=== PATIENT | female | born 1965 | race Caucasian/White ===

== ENCOUNTER → 2017-04-18 | Outpatient (CLI) | payer OTHER ==
[~2017-04-18] MED LIST: CLIN300C2 PO; ESTR2TAB PO; FEXO1TAB58 PO; IBUP-1050 PO; LEVO50TA PO
[2017-04-18 12:22] LABS: HEMATOCRIT 45.4 % (37-47); MEAN CELL VOLUME 89.2 fL (80-100); MEAN CORPUSCULAR HEMOGLOBIN 28.7 pg (25-34); MEAN CORPUSCULAR HGB CONC 32.2 g/dl (32-36); MEAN PLATELET VOLUME 9.5 fL (7.4-10.4); PLATELET COUNT 424 K/uL (130-400); RED BLOOD COUNT 5.09 M/uL (4.2-5.4); WHITE BLOOD COUNT 6.51 K/uL (4.8-10.8)
[2017-04-18 13:02] LABS: ESTIMATED AVERAGE GLUCOSE 114 mg/dl; HA1C FLAG Normal (Normal)
[2017-04-18 13:57] LABS: BLOOD UREA NITROGEN 16 mg/dl (7-18); BUN/CREATININE RATIO 17.6 (10-20); CALCIUM 8.5 mg/dl (8.5-10.1); CARBON DIOXIDE 25 mmol/L (21-32); CHLORIDE 107 mmol/L (98-107); CREATININE 0.89 mg/dl (0.60-1.20); GLUCOSE 99 mg/dl (70-99); SODIUM 137 mmol/L (136-145)
[2017-04-18 14:08] LABS: CHOLESTEROL 181 mg/dl (0-200); CHOLESTEROL/HDL RATIO 2.9; HDL CHOLESTEROL 62 mg/dl; LDL CHOLESTEROL CALCULATED 104 mg/dl; TRIGLYCERIDES 77 mg/dl (0-150); VERY LOW DENSITY LIPOPROT CALC 15 mg/dl
== END | disposition home or self-care (01) ==
LOC: C.LABPBG 09:24
PROVIDERS: ATTEND Family Medicine
DX: Z00.00 Encounter for general adult medical examination without abnormal findings (principal); Z13.220 Encounter for screening for lipoid disorders; E03.9 Hypothyroidism, unspecified; Z13.1 Encounter for screening for diabetes mellitus

== ENCOUNTER → 2017-06-09 | Outpatient (CLI) | payer OTHER ==
--- NOTE | 2017-06-09 09:08 | DIAGNOSTIC IMAGING REPORT ---
BRAIN WITHOUT CONTRAST HISTORY: 51 years-old Female G43.109 Classic migraine with aura acute on chronic migraines for 5 years. COMPARISON: None available TECHNIQUE: Multiplanar multisequence MRI of the brain FINDINGS: There is no restricted diffusion to suggest acute ischemia. The midline structures including the corpus callosum, brainstem, optic chiasm, infundibulum, pituitary and pineal glands are unremarkable. No cerebellar tonsillar herniation. No pathologic blooming artifact identified. No acute intracranial hemorrhage, midline shift, abnormal extra-axial collections, hydrocephalus or intercranial mass. There are several scattered foci of increased T2/FLAIR signal involving the subcortical and periventricular white matter of the cerebral hemispheres bilaterally measuring up to approximately 4 mm, most pronounced within the frontal and parietal lobes. No infratentorial foci identified. The major flow voids at the level of the skull base appear patent. Mastoid air cells are generally clear. Minimal ethmoid sinus disease. Scalp, soft tissues and calvarium appear unremarkable. IMPRESSION: 1. No acute intracranial abnormality. 2. Scattered sub-centimeter foci of T2/FLAIR prolongation within the subcortical and to a lesser extent periventricular white matter of the cerebral hemispheres bilaterally, most pronounced within the frontal and parietal lobes are nonspecific findings. Differential considerations would include gliosis from chronic migraines or early mild chronic microvascular ischemic changes among other etiologies. The above report was generated using voice recognition software. It may contain grammatical, syntax or spelling errors. Electronically signed by: Channing Vee M.D. 06/09/2017 9:07 AM Dictated Date/Time: 06/09/2017 9:01 AM
== END | disposition home or self-care (01) ==
LOC: C.MRIBC 08:11
PROVIDERS: ATTEND Psychiatry & Neurology Neurology
DX: G43.109 Migraine with aura, not intractable, without status migrainosus (principal); R90.89 Other abnormal findings on diagnostic imaging of central nervous system

== ENCOUNTER → 2017-10-14 | Outpatient (CLI) | payer OTHER | END | disposition home or self-care (01) | LOC: C.LABPBG 08:46 | PROVIDERS: ATTEND Family Medicine | DX: E03.9 Hypothyroidism, unspecified (principal) ==